=== PATIENT | male | born 1970 | race Caucasian/White ===

== ENCOUNTER 2022-07-25 08:15 | Outpatient (REF) | payer OTHER, SELFPAY ==
--- NOTE | ~2022-07-25 | MR_ITS ---
EXAMINATION: MR CERVICAL SPINE WITHOUT CONTRAST CLINICAL INFORMATION: 52-year-old with neck pain. Cervical spondylitic cord compression. COMPARISON: None TECHNIQUE: MRI of the cervical spine was obtained using routine sequences without contrast. FINDINGS: Alignment: The cervical spine appears somewhat hyperextended with a prominent lordotic curvature centered at C3-C4. Otherwise, alignment is intact. Craniocervical Junction/C1-C2 Articulations: Intact and aligned. Visualized Intracranial Structures: Within normal limits. Vertebral Bodies: Normal height. Disc Spaces and Endplates: Moderate disc space height loss at C6-C7 and mild disc space height loss at C3-C4 and C4-C5. Minor anterior marginal endplate spurring at C6-C7 noted. Endplates appear intact. Bone Marrow: No significant marrow-replacing process or bone marrow edema. C2-C3: Posterior disc-osteophyte complex noted with mild flattening of the ventral dural sac asymmetric to the left without cord impingement. Mild central canal stenosis is noted. There is uncovertebral spurring with mild left and moderate right neural foraminal stenosis. C3-C4: Mild posterior disc-osteophyte complex noted without cord impingement. Mild ligamentum flavum thickening noted with flattening of the dorsal dural sac without significant spinal canal stenosis. Uncovertebral spurring noted with minor facet hypertrophic changes with severe right-sided and moderate left-sided neural foraminal stenosis. C4-C5: Small central disc protrusion with mild indentation of the ventral thecal sac without cord impingement or canal stenosis. Mild uncinate process spurring on the left with mild left-sided facet arthropathy and [id number] left-sided neural foraminal stenosis. C5-C6: Small central disc protrusion noted with slight flattening of the ventral dural sac without cord impingement or significant canal stenosis. Mild uncovertebral and facet arthropathy noted with mild bilateral neural foraminal stenosis. C6-C7: Broad-based disc protrusion noted with effacement of the ventral dural sac abutting the ventral aspect of the spinal cord with ligamentum flavum thickening or infolding and moderate central spinal canal stenosis. There is uncovertebral spurring, left more than right, with [id number] left-sided and [id number] right-sided neural foraminal stenosis. C7-T1: No disc herniation or canal stenosis. Posterolateral disc-osteophyte complex noted bilaterally with mild left-sided facet arthropathy and [id number] left-sided neural foraminal stenosis. Spinal Cord: Questionable small focus of T2 hyperintensity in the spinal cord at the C6-C7 level versus artifact possibly reflecting a minimal degree of myelomalacia. Otherwise normal spinal cord signal. Extracranial Soft Tissues: The visualized extracranial head/neck soft tissues are unremarkable within the limitations of the study. MR/MR cervical spine wo con IMPRESSION: 1. Somewhat exaggerated upper cervical lordotic curvature suggesting some degree of hyperextension which could be positional. 2. Multilevel discogenic degenerative changes, as described above, most apparent at C6-C7 with broad-based disc protrusion at this level abutting and possibly slightly impinging on the ventral aspect of the spinal cord with moderate spinal canal stenosis and possible minimal spondylitic myelomalacia at this level versus artifact. 3. Multilevel small central disc protrusions and posterior disc-osteophyte complexes, as discussed above, at the other levels without cord impingement. Mild central canal stenosis at C2-C3. Multilevel DJD, as discussed above, with multilevel bilateral neural foraminal stenosis most apparent on the left at C6-C7 and on the right at C3-C4.
== END 2022-07-25 08:16 | disposition home or self-care (01) ==
LOC: HO.MRI 08:15
PROVIDERS: Visit Provider Psychiatry & Neurology Neurology
DX: M17.12 Unilateral primary osteoarthritis, left knee (principal)
CPT/HCPCS: 72141